=== PATIENT | male | born 1960 | race Caucasian/White ===

== ENCOUNTER 2019-03-10 00:28 | Inpatient (IN) | payer OTHER ==
[~2019-03-10] VITALS: Ht 182.9 cm; Wt 107.5 kg
[2019-03-10 00:40] VITALS: BP 131/70
[2019-03-10 00:45] VITALS: BP 131/70
--- NOTE | 2019-03-10 01:00 | NUR ---
LACE CUTTER RECEIVE PT FROM [facility] WITH 2 EMT AT 0037. PT A/O X 3, ADMIT TO TELE FLOOR. ON CARDIAC MONITORING WITH READING OF SR 86. NO NAUSEA AND VOMITING, HEAD TO TOE ASSESSMENT IS DONE. RESPIRATIONS EVEN AND UNLABORED. KEPT CLEAN AND DRY AND COMFORTABLE. SAFETY MEASURES AT ALL TIMES. WILL CONT TO MTR
[2019-03-10] MEDS ORDERED: MAGNESIUM HYDROXIDE 30 ML UDC PO PRN (01:30)
[2019-03-10] MEDS ORDERED: Z GUARD REMEDY 2 OZ OINT TP PRN (01:30)
[2019-03-10] MEDS ORDERED: Thiamine 100 MG in IV D5W 50 ML IV SCH (01:30)
[2019-03-10] MEDS ORDERED: ACETAMINOPHEN 325 MG TABLET PO PRN (01:30)
[2019-03-10] MEDS ORDERED: MAG HYDROX/AL HYDROX/SIMETH 30 ML UDC PO PRN (01:30)
[2019-03-10] MEDS ORDERED: ONDANSETRON HCL/PF 4 MG/2 ML VIAL IVP PRN (01:30)
[2019-03-10] MEDS ORDERED: LORAZEPAM INJ 2 MG/ML VIAL IV PRN ×2 (01:30→09:30)
[2019-03-10] MEDS ORDERED: Thiamine 100 MG in IV D5W 50 ML IV ONE (02:00)
[2019-03-10] MEDS ORDERED: FUROSEMIDE 20 MG/2 ML VIAL IV ONE (02:00)
[2019-03-10 04:00] VITALS: BP 127/68
--- NOTE | 2019-03-10 06:28 | NUR ---
FORECLOSURE PARALEGAL PT ASLEEP AND EASILY AWAKEN.ON CARDIAC MONITORING SR 90 IN THE TELE MONITOR. RESPIRATIONS EVEN AND UNLABORED. NO S/S OF DISTRESS. KEPT CLEAN AND DRY AND COMFORTABLE. NEEDS ATTENDED AND ANTICIPATED. NURSING CARE RENDERED, OFFLOAD HEELS AND ELBOWS AT ALL TIMES. BOTH LOWER EXTREMITY ELEVATED AT PILLOW TO REDUCE EDEMA. NO C/O OF PAIN AT THIS TIME. SAFETY MEASURES AT ALL TIMES. ENDORSE TO THE NEXT SHIFT.
[2019-03-10 06:50] LABS: BASOPHILS % (AUTO) 0.4 % (0.0-2.0); EOSINOPHILS % (AUTO) 1.6 % (0.0-6.0); HEMATOCRIT 27 % (39-51); HEMOGLOBIN 8.5 g/dL (13.5-17.5); LYMPHOCYTES # (AUTO) 0.4 /CMM (0.8-4.8); LYMPHOCYTES % (AUTO) 9.2 % (20.0-44.0); MEAN CORPUSCULAR HGB CONC 31 g/dl (31.0-36.0); MEAN CORPUSCULAR VOLUME 81 fL (80-96); MONOCYTES # (AUTO) 0.6 /CMM (0.1-1.30); MONOCYTES % (AUTO) 12.8 % (2.0-12.0); NEUTROPHILS # (AUTO) 3.5 /CMM (1.8-8.9); PLATELET COUNT (AUTO) 114 /CMM (150-450); RED BLOOD CELL COUNT(AUTO) 3.38 MIL/uL (4.5-6.0); WHITE BLOOD COUNT (AUTO) 4.6 K/uL (4.3-11.0)
[2019-03-10 07:04] LABS: THYROID STIMULATING HORMONE 2.347 uIU/mL (0.358-3.74)
[2019-03-10 07:12] LABS: ALBUMIN 2.5 g/dL (3.4-5.0); BILIRUBIN,TOTAL 4.4 mg/dL (0.2-1.0); CALCIUM, SERUM 7.6 mg/dL (8.5-10.1); CREATININE 0.8 mg/dL (0.6-1.3); MAGNESIUM 1.8 mg/dL (1.8-2.4); PHOSPHORUS 2.8 mg/dL (2.5-4.9); POTASSIUM 3.1 mmol/L (3.5-5.1); TOTAL PROTEIN, SERUM 5.8 g/dL (6.4-8.2)
--- NOTE | 2019-03-10 07:30 | NUR ---
TELE/RN OPENING NOTES PATIENT IN BED SLEEPING COMFORTABLY. EASILY AROUSABLE. NO PAIN OR ACUTE DISTRESS AT THIS TIME. RESPIRATION EVEN AND UNLABORED. SKIN IS DRY WARM TO TOUCH. NOTED WITH IV ACCESS ON RFA. INTACT AND PATENT. FLUSHING WELL. NO S/S OF INFECTION OR INFILTRATION. ALL NEEDS ANTICIPATED. CALL LIGHT WITHIN REACHED. BED LOCKED AND IN LOWEST POSITION. SAFETY MAINTAINED. DISCUSSED PLAN OF CARE. WILL CONTINUE TO MONITOR CLOSELY.
[2019-03-10] MEDS ORDERED: FURO40TA5 PO (07:39)
[2019-03-10] MEDS ORDERED: PANT40TA4 PO (07:39)
[2019-03-10] MEDS ORDERED: HYDR-3980 PO (07:39)
[2019-03-10] MEDS ORDERED: POTA-88 PO (07:39)
[2019-03-10] MEDS ORDERED: CEPH500C2 PO (07:39)
[2019-03-10] MEDS ORDERED: SPIR25TA6 PO (07:39)
[2019-03-10] MEDS ORDERED: PANTOPRAZOLE 40 MG TABLET.DR PO SCH (07:49)
[2019-03-10 08:00] VITALS: BP 128/78
[2019-03-10] MEDS ORDERED: FOLIC ACID 1 MG TABLET PO SCH (09:00)
[2019-03-10] MEDS ORDERED: FUROSEMIDE 40 MG TABLET PO SCH (09:00)
[2019-03-10] MEDS ORDERED: FUROSEMIDE 20 MG/2 ML VIAL IV SCH (09:00)
[2019-03-10] MEDS ORDERED: THIAMINE HCL 100 MG TABLET PO SCH (09:00)
[2019-03-10] MEDS ORDERED: SPIRONOLACTONE 25 MG TABLET PO SCH (10:00)
[2019-03-10] MEDS ORDERED: POTASSIUM CHLORIDE 20 MEQ TAB.PRT.SR PO SCH (10:00)
[2019-03-10] MEDS ORDERED: CEFTRIAXONE 1 G in IV D5W 50 ML IV SCH (10:00)
--- NOTE | 2019-03-10 14:53 | NUR ---
MS/OUTSIDE CONTRACTOR SALES NOTES PATIENT REMAINS IN STABLE CONDITION. PATIENT ALERT AND ORIENTED X4. PATIENT ABLE TO MAKE HIS OWN DECISION. PATIENT STATED THAT HE WANTS TO LEAVE THE HOSPITAL, "I FEEL FINE". CHARGE NURSE, FLEXOGRAPHIC PRINTING MACHINIST AND MD WAS MADE AWARE OF THE SITUATION. PATIENT WAS ABLE TO SIGN THE AMA FORM. PATIENT TOOK ALL OF HIS BELONGINGS. ACCOMPANIED TO THE LOBBY AND THE PATIENT LEFT THE HOSPITAL IN STABLE CONDITION. ACCORDING TO THE PATIENT HE WILL BE PICKED UP BY HIS FAMILY MEMBER.
[2019-03-10] MEDS ORDERED: PROPRANOLOL HCL 10 MG TABLET PO SCH (21:00)
[2019-03-11] MEDS ORDERED: PANTOPRAZOLE 40 MG TABLET.DR PO SCH (07:30)
== END 2019-03-10 13:10 | disposition left against medical advice (07) | DRG 383 ==
LOC: TELE 00:28 → MED 08:52
PROVIDERS: ADMIT Student in an Organized Health Care Education/Training Program; ATTEND Student in an Organized Health Care Education/Training Program
DX: L03.115 Cellulitis of right lower limb (principal); K76.6 Portal hypertension; D69.6 Thrombocytopenia, unspecified; E44.0 Moderate protein-calorie malnutrition; K43.6 Other and unspecified ventral hernia with obstruction, without gangrene; E87.1 Hypo-osmolality and hyponatremia; F10.129 Alcohol abuse with intoxication, unspecified; K70.31 Alcoholic cirrhosis of liver with ascites; L03.116 Cellulitis of left lower limb; I10 Essential (primary) hypertension; F41.9 Anxiety disorder, unspecified; D64.9 Anemia, unspecified; E87.6 Hypokalemia; R74.0 Nonspecific elevation of levels of transaminase and lactic acid dehydrogenase [LDH]; F17.210 Nicotine dependence, cigarettes, uncomplicated; Z91.14 Patient's other noncompliance with medication regimen; Y90.7 Blood alcohol level of 200-239 mg/100 ml
CPT/HCPCS: 36415; 80053-TC; 80061-TC; 83735-TC; 84100-TC; 84443-TC; 85025-TC; 87081-TC; 93307-TC; 93970-TC; C9113; G0378; J0696; J1940; J3411; J7060